=== PATIENT | male | born 1960 | race Caucasian/White ===

== ENCOUNTER 2016-08-07 16:46 | Emergency (ER) | payer OTHER ==
[~2016-08-07] VITALS: Ht 180.3 cm; Wt 156.0 kg
[~2016-08-07 16:46] MED LIST: ALBUTEROL SULF8.5 GM IH; Advair HFA 115/21 IH; BACTRIM,SEPT1 TABLET PO; CEFTIN500 MG PO; COLACE100 MG PO; COLCHICINE,COL0.6 MG PO; COUMADIN,JANTOVE1 MG PO; Colace PO; DIOVAN160 MG PO; DIOVAN80 MG PO; FEOSOL325 MG PO; Feosol PO; Fosamax PO; K-Dur PO; KLOR-CON M2020 MEQ PO; Klor-Con M20 PO; LASIX20 MG PO; LASIX40 MG PO; LIDODERM 5% P1 PATCH TD; LIDODERM 5% P1 PATCH TP; Lasix PO; Lotrimin Cream TP; Maxipime IV; Nucynta PO; OXYCONTIN20 MG PO; OxyCONTIN PO; PREDNISONE TAPER; PREDNISONE20 MG PO; PROVENTIL,2.5 MG/0.5 IH; SENOKOT S,PE1 TABLET PO; SPIRIVA1 INHALATI IH; Symbicort 160-4.5 mc IH; TRAVATAN BOTH EYES; Travatan 0.004% Opht BOTH EYES; Tylenol Regular Stre PO; oxyCODONE PO; predniSONE PO
[2016-08-07 16:52] VITALS: BP 113/78
[2016-08-07] MEDS ORDERED: PERCOCET 5/31 TABLET PO (19:31)
== END 2016-08-07 19:56 | disposition home or self-care (01) ==
LOC: EME 16:46
DX: S42.252A Displaced fracture of greater tuberosity of left humerus, initial encounter for closed fracture (principal); W18.30XA Fall on same level, unspecified, initial encounter; Y93.01 Activity, walking, marching and hiking; Y92.480 Sidewalk as the place of occurrence of the external cause; E11.9 Type 2 diabetes mellitus without complications; E78.5 Hyperlipidemia, unspecified; I10 Essential (primary) hypertension; F17.200 Nicotine dependence, unspecified, uncomplicated
CPT/HCPCS: 73030; 99281; 99284

== ENCOUNTER 2017-03-27 13:13 | Emergency (ER) | payer OTHER ==
[~2017-03-27] VITALS: Ht 180.3 cm; Wt 159.0 kg
[~2017-03-27 13:13] MED LIST changes: +ATORVASTATIN CA40 MG PO; +BENADRYL25 MG PO; +ELIQUIS2.5 MG PO; +GABAPENTIN600 MG PO; +IRON325 M1 PO; +LO-DOSE ASPIRIN81 M1 PO; +MELOXICAM15 MG PO; +OXYCODONE HCL5 MG PO; +OXYCONTIN10 MG PO; +PERCOCET 5/31 TABLET PO; +SENNA PLUS TAB1 EACH PO; +SYMBICORT60 INHALAT IH; +Salonpas 4% Patch TD; +TYLENOL EXTRA500 MG PO
[2017-03-27 17:14] LABS: HEMATOCRIT 44.5 % (38.0-50.0); HEMOGLOBIN 14.7 G/DL (12.5-16.6); MCH 31.8 PG (29.0-34.0); MCV 96.3 FL (86-99); PLATELET COUNT 286 K/uL (156-360); RBC DIS.WIDTH-CV 14.6 % (11.8-14.6); RBC DIS.WIDTH-SD 51.6 % (39-53); RED BLOOD COUNT 4.62 M/uL (4.00-5.50); WHITE BLOOD COUNT 10.1 K/uL (4.1-10.2)
[2017-03-27 17:22] LABS: CHLORIDE 100 mEq/L (99-109); POTASSIUM 4.4 mEq/L (3.7-5.4); SODIUM 136 mEq/L (136-147)
[2017-03-27 17:24] LABS: GLUCOSE 111 mg/dL (70-99)
[2017-03-27 17:27] LABS: CREATININE 0.9 mg/dL (0.6-1.3); GFR ESTIMATE (CALCULATED) > 59 mL/min/ (58.99-99999)
[2017-03-27 17:28] LABS: UREA NITROGEN (BUN) 10 mg/dL (9-23)
[2017-03-27 18:28] LABS: URIC ACID 7.2 mg/dL (3.1-9.2)
[2017-03-27] MEDS ORDERED: PERCOCET 5/31 TABLET PO (18:37)
[2017-03-27] MEDS ORDERED: INDOMETHACIN50 MG PO (18:37)
[2017-03-27 18:46] VITALS: BP 131/79
== END 2017-03-27 18:56 | disposition home or self-care (01) ==
LOC: EME 13:13
PROVIDERS: Emergency Medicine
DX: S80.02XA Contusion of left knee, initial encounter (principal); R60.0 Localized edema; Z98.890 Other specified postprocedural states; F17.200 Nicotine dependence, unspecified, uncomplicated; Z96.643 Presence of artificial hip joint, bilateral; Z88.5 Allergy status to narcotic agent; Z88.8 Allergy status to other drugs, medicaments and biological substances
CPT/HCPCS: 80048; 84550; 85027; 93971; 99281; 99284

== ENCOUNTER → 2017-08-12 | Outpatient (CLI) | payer OTHER ==
[~2017-08-12] VITALS: Ht 181.6 cm; Wt 163.3 kg
[~2017-08-12] MED LIST changes: +ARMONAIR RESPI55 MCG IH; +CYMBALTA20 MG PO; +DULERA 200 MCG/13 GM IH; +INDOMETHACIN50 MG PO; +LIPITOR40 MG PO; +NEURONTIN300 MG PO
== END | disposition home or self-care (01) ==
LOC: AMB 13:30
PROC: 0DBL8ZX Excision of Transverse Colon, Via Natural or Artificial Opening Endoscopic, Diagnostic (ICD-10-PCS; principal; 2017-08-12)
DX: Z12.11 Encounter for screening for malignant neoplasm of colon (principal); D12.3 Benign neoplasm of transverse colon; Z86.010 Personal history of colon polyps; K64.8 Other hemorrhoids; F17.210 Nicotine dependence, cigarettes, uncomplicated; E66.9 Obesity, unspecified; Z68.43 Body mass index [BMI] 50.0-59.9, adult
CPT/HCPCS: 88305; 93005